=== PATIENT | female | born 2000 ===

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

== ENCOUNTER 2021-01-10 12:59 | Emergency (ER) | payer MEDICAID, OTHER ==
[~2021-01-10] VITALS: Ht 160 cm; Wt 76.8 kg
[~2021-01-10 12:59] MED LIST: ONDA4TAB7 PO; PREN1TAB60 PO
--- NOTE | 2021-01-10 13:20 | NUR ---
ASSUMED CARE OF PT. ABD PAIN X2 YEARS; 2 WEEK N/V/D POOR INTAKE. SAW GI DOCTOR TODAY WHO SAID IT COULD BE DIVERTICULITIS AND TO COME TO ED TO BE R/O. PT AMBULATED TO RESTROOM AND BACK W/O INCIDENT, ABLE TO PROVIDE URINE SAMPLE. VSS, CALL LIGHT W/IN REACH. PA BEDSIDE. REVIEWED POC W/ PT.
[2021-01-10] MEDS ORDERED: SODIUM CHLORIDE 0.9% 1,000ML IVBOLUS ONE (13:30)
[2021-01-10] MEDS ORDERED: ONDANSETRON 2MG/ML, 2ML IVPush ONE (13:30)
[2021-01-10] MEDS ORDERED: LORazepam 1MG TABLET PO ONE (13:30)
[2021-01-10] MEDS ORDERED: HALOPERIDOL 5 MG/ML ONE (13:49)
[2021-01-10] MEDS ORDERED: ONDANSETRON 2MG/ML, 2ML ONE (13:49)
[2021-01-10] MEDS ORDERED: LORazepam 2 MG/ML, 1ML ONE (13:50)
[2021-01-10 13:53] LABS: BASOPHILS % (AUTO) 1 % (0-1); EOSINOPHILS % (AUTO) 1 % (1-7); LYMPHOCYTES % (AUTO) 21 % (22-44); MEAN CORPUSCULAR HEMOGLOBIN 30.1 pg (27.0-34.8); MEAN CORPUSCULAR HGB CONC 34.3 g/dL (32.4-35.8); MEAN PLATELET VOLUME 6.7 fL (7.4-10.4); MONOCYTES % (AUTO) 5 % (2-9); NEUTROPHILS % (AUTO) 73 % (42-75); PLATELET COUNT 321 x10^3/uL (130-400); RED BLOOD COUNT 4.62 x10^6/uL (3.82-5.3); RED CELL DISTRIBUTION WIDTH 13.6 % (9.6-15.2)
[2021-01-10 13:57] LABS: MD NO
[2021-01-10] MEDS ORDERED: HALOPERIDOL 5 MG/ML IV ONE (14:00)
[2021-01-10 14:04] LABS: ALANINE AMINOTRANSFERASE 15 U/L (12-78); ALBUMIN 5.1 g/dL (3.4-5.0); ANION GAP 17 mmol/L (5-15); CALCIUM 9.8 mg/dL (8.5-10.1); CHLORIDE 107 mmol/L (98-107); CREATININE 0.76 mg/dL (0.55-1.02)
[2021-01-10 14:07] LABS: MICROSCOPIC AUTO
[2021-01-10 14:08] LABS: ALKALINE PHOSPHATASE 64 U/L (45-117); BILIRUBIN,TOTAL 1.4 mg/dL (0.2-1.0); TOTAL PROTEIN 8.6 g/dL (6.4-8.2)
--- NOTE | 2021-01-10 14:10 | NUR ---
PT MEDICATED PER OCT. ATIVAN 1 MG BEING CHANGED TO IV. PT PLACED ON MONITOR R/T HALDON. PT HAS HIGH ANXIETY, BF AT BEDSIDE. ENCOURAGED PT TO DISTRACT, SHE OPTED TO PLACE TV ON. AMIRAH RODRIGUEZ. CALL LIGHT W/IN REACH.
--- NOTE | 2021-01-10 14:22 | NUR ---
DR PIPER BEDSIDE
--- NOTE | 2021-01-10 14:29 | NUR ---
PT TO CT
[2021-01-10] MEDS ORDERED: LORazepam 2 MG/ML, 1ML IVPush ONE (14:30)
[2021-01-10] MEDS ORDERED: OMNIPAQUE 350 MG/ML, 100ML BOTTLE ONE (14:45)
--- NOTE | 2021-01-10 14:56 | NUR ---
PT RETURNED FROM CT, ABX ADMINSTERED. PT DENIES NAUSEA, REPORTS IMPROVED PAIN 02/02. REPORTS BEING DROWSY, ENCOURAGED HER TO NAP. AMIRAH RODRIGUEZ. CALL LIGHT W/IN REACH
[2021-01-10] MEDS ORDERED: CEFTRIAXONE 1,000 MG in DEXTROSE 5% 50 ML IVPB ONE (15:00)
[2021-01-10 15:32] VITALS: BP 100/54
--- NOTE | 2021-01-10 15:33 | NUR ---
Patient given discharge instructions and they have confirmed that they understand the instructions. Patient ambulatory with steady gait.
== END 2021-01-10 15:52 | disposition home or self-care (01) ==
LOC: ED 15:45
DX: N30.01 Acute cystitis with hematuria (principal); R11.2 Nausea with vomiting, unspecified; R94.31 Abnormal electrocardiogram [ECG] [EKG]; G89.29 Other chronic pain; F17.210 Nicotine dependence, cigarettes, uncomplicated; Z86.59 Personal history of other mental and behavioral disorders
CPT/HCPCS: 36415; 74177; 80053; 81001; 84703; 85025; 87086; 93005; 96361; 96365; 96375; 99285; J0696; J1630; J2060; J2405; J7030; Q9967